=== PATIENT | female | born 1990 | race Two or more races ===

== ENCOUNTER 2019-11-12 09:55 | Inpatient (IN) | payer OTHER ==
[~2019-11-12] VITALS: Ht 156 cm; Wt 71.7 kg
[2019-11-12] MEDS ORDERED: OXYTOCIN 30 UNITS/LACT RINGERS 500 ML IV ONE (10:57)
[2019-11-12] MEDS ORDERED: RINGERS SOLUTION,LACTATED 1,000 ML IV PRN (10:57)
[2019-11-12] MEDS ORDERED: METOCLOPRAMIDE HCL 5 MG/ML 2 ML VIAL IVP PRN (11:00)
[2019-11-12] MEDS ORDERED: CITRIC ACID/SODIUM CITRATE 30 ML SOLUTION UDCUP PO PRN (11:00)
[2019-11-12] MEDS ORDERED: MISOPROSTOL 50 MCG TABLET PO ONE ×2 (11:00→18:00)
[2019-11-12 11:45] LABS: BASOPHILS % (AUTO) 0.5 % (0.0-2.0); EOSINOPHILS % (AUTO) 1.2 % (1.0-6.0); HEMATOCRIT 37.5 % (36-46); HEMOGLOBIN 12.7 g/dL (12.0-16.0); LYMPHOCYTES # (AUTO) 1.2 K/uL (1.0-4.8); MEAN CORPUSCULAR HEMOGLOBIN 30.2 pg (26.0-34.0); MEAN CORPUSCULAR HGB CONC 33.8 G/dL (31.0-37.0); MEAN CORPUSCULAR VOLUME 89 fL (80-100); MONOCYTES # (AUTO) 0.4 K/uL (0.1-1.0); MONOCYTES % (AUTO) 6.4 % (2.0-9.0); NEUTROPHILS % (AUTO) 73.9 % (40.0-70.0); PLATELET COUNT (AUTO) 178 K/uL (150-450); RED CELL DISTRIBUTION WIDTH 13.6 % (11.5-14.5)
[2019-11-12 12:09] VITALS: BP 114/73
[2019-11-12] MEDS ORDERED: PNV11TAB PO (12:18)
[2019-11-12] MEDS: RINGERS SOLUTION,LACTATED 1,000 ML IV SCH ×2 (16:46→23:50)
[2019-11-12] MEDS ORDERED: OXYGEN THERAPY IH SCH (20:00)
[2019-11-12] MEDS: FentaNYL CITRATE-PF 100 MCG/2 ML VIAL IVP PRN ×4 (20:59→22:46)
[2019-11-12] MEDS ORDERED: INFLUENZA VIRUS VACCINE QVS 2019-20 (3YR+)/PF 60 MCG/0.5 ML SYRINGE IM ONE (22:00)
[2019-11-12] MEDS ORDERED: ROPIVACAINE HCL/PF 0.2% 100 ML ED PRN (23:01)
[2019-11-12] MEDS ORDERED: NALBUPHINE HCL 10 MG/ML VIAL IVP PRN (23:15)
[2019-11-12] MEDS ORDERED: DiphenhydrAMINE HCL 50 MG/ML VIAL IVP PRN (23:15)
[2019-11-12] MEDS ORDERED: ONDANSETRON HCL 4 MG/2 ML VIAL IVP PRN (23:15)
[2019-11-13] MEDS ORDERED: OXYTOCIN 30 UNITS/LACT RINGERS 500 ML IV PRN (00:04)
[2019-11-13] MEDS: RINGERS SOLUTION,LACTATED 1,000 ML IV SCH ×2 (04:01→09:04)
[2019-11-13] MEDS ORDERED: MINERAL OIL 30 ML UDCUP VG ONE (07:00)
[2019-11-13] MEDS ORDERED: OXYTOCIN 30 UNITS/LACT RINGERS 500 ML IV ONE (13:40)
[2019-11-13] MEDS ORDERED: IBUPROFEN 800 MG TABLET PO PRN (13:45)
[2019-11-13] MEDS ORDERED: GLYCERIN/WITCH HAZEL LEAF 40 PADS JAR TP PRN (13:45)
[2019-11-13] MEDS ORDERED: OxyCODONE HCL/ACETAMINOPHEN 5-325 MG TABLET PO PRN ×2 (13:45)
[2019-11-13] MEDS ORDERED: LIDOCAINE/PF 1% 30 ML VIAL INJ PRN (13:45)
[2019-11-13] MEDS ORDERED: LANOLIN 7 GM OINTMENT TP PRN (13:45)
[2019-11-13] MEDS ORDERED: BENZOCAINE 20%/MENTHOL 56 GM SPRAY CANISTER TP PRN (13:45)
[2019-11-13 18:10] LABS: HEMATOCRIT 31.9 % (36-46); HEMOGLOBIN 10.9 g/dL (12.0-16.0); MEAN CORPUSCULAR HEMOGLOBIN 30.4 pg (26.0-34.0); MEAN CORPUSCULAR VOLUME 89 fL (80-100); PLATELET COUNT (AUTO)-OB 175 K/uL (150-450); RED BLOOD CELL COUNT(AUTO) 3.57 MIL/uL (4.00-5.20); RED CELL DISTRIBUTION WIDTH 13.4 % (11.5-14.5)
[2019-11-13 19:27] LABS: BAND NEUTROPHILS % (MANUAL) 13 % (0-5); LYMPHOCYTES % (MANUAL) 5 % (22-44); MONOCYTES % (MANUAL) 6 % (2-9); SEGMENTED NEUTROPHILS % 76 % (40-70)
[2019-11-13] MEDS: MAGNESIUM HYDROXIDE SUSPENSION 30 ML UDCUP PO PRN (20:50)
[2019-11-13] MEDS ORDERED: PHENYLEPHRINE/COCOA BUTTER RECTAL SUPPOSITORY PR SCH (21:00)
[2019-11-14 07:15] LABS: BASOPHILS % (AUTO) 0.4 % (0.0-2.0); EOSINOPHILS % (AUTO) 0.7 % (1.0-6.0); HEMATOCRIT 26.8 % (36-46); HEMOGLOBIN 9.3 g/dL (12.0-16.0); LYMPHOCYTES # (AUTO) 1.7 K/uL (1.0-4.8); MEAN CORPUSCULAR HEMOGLOBIN 30.9 pg (26.0-34.0); MEAN CORPUSCULAR HGB CONC 34.6 G/dL (31.0-37.0); MEAN CORPUSCULAR VOLUME 89 fL (80-100); MONOCYTES # (AUTO) 0.8 K/uL (0.1-1.0); NEUTROPHILS # (AUTO) 10.7 K/uL (1.8-7.7); NEUTROPHILS % (AUTO) 79.9 % (40.0-70.0); PLATELET COUNT (AUTO)-OB 161 K/uL (150-450); RED BLOOD CELL COUNT(AUTO) 3.01 MIL/uL (4.00-5.20); RED CELL DISTRIBUTION WIDTH 13.5 % (11.5-14.5)
[2019-11-14] MEDS ORDERED: ACET-66 PO (09:40)
[2019-11-14] MEDS ORDERED: IBUP-2070 PO (09:41)
[2019-11-14] MEDS ORDERED: DOCU-275 PO (09:41)
[2019-11-14] MEDS: MAGNESIUM HYDROXIDE SUSPENSION 30 ML UDCUP PO PRN (10:04)
== END 2019-11-14 14:25 | disposition home or self-care (01) | DRG 807 ==
LOC: 4S 09:55 → OBSVTOIN 09:55
PROVIDERS: ADMIT Obstetrics & Gynecology; ATTEND Obstetrics & Gynecology
PROC: 10D07Z4 Extraction of Products of Conception, Mid Forceps, Via Natural or Artificial Opening (ICD-10-PCS; principal; 2019-11-13)
PROC: 0HQ9XZZ Repair Perineum Skin, External Approach (ICD-10-PCS; 2019-11-13)
PROC: 10907ZC Drainage of Amniotic Fluid, Therapeutic from Products of Conception, Via Natural or Artificial Opening (ICD-10-PCS; 2019-11-13)
PROC: 3E0R3BZ Introduction of Anesthetic Agent into Spinal Canal, Percutaneous Approach (ICD-10-PCS; 2019-11-13)
PROC: 00HU33Z Insertion of Infusion Device into Spinal Canal, Percutaneous Approach (ICD-10-PCS; 2019-11-13)
PROC: 3E02340 Introduction of Influenza Vaccine into Muscle, Percutaneous Approach (ICD-10-PCS; 2019-11-13)
DX: O69.81X0 Labor and delivery complicated by cord around neck, without compression, not applicable or unspecified (principal); Z37.0 Single live birth; O70.0 First degree perineal laceration during delivery; O77.0 Labor and delivery complicated by meconium in amniotic fluid; O66.5 Attempted application of vacuum extractor and forceps; Z3A.40 40 weeks gestation of pregnancy; Z23 Encounter for immunization
CPT/HCPCS: 86850; 86900; 86901; 90686; J2590; J2795; J3010; J7120